=== PATIENT | male | born 1965 | race Caucasian/White ===

== ENCOUNTER 2021-04-28 22:15 | Emergency (ER) | payer BC, MEDICAID ==
[~2021-04-28] VITALS: Ht 175.3 cm; Wt 81.2 kg
[~2021-04-28 22:15] MED LIST: CITA10TA17 PO; ESCI5TAB PO; SIMV-46 PO; VENL75TA54 PO
--- NOTE | 2021-04-28 22:20 | NUR ---
BIBS FOR C/O R HAND LACERATION WITH BROKEN GLASS TABLE TDAP NOT UPDATED
[2021-04-28] MEDS ORDERED: LIDOCAINE 2%-EPI 1:100,000 30 ML VIAL TP ONE (22:30)
[2021-04-28] MEDS ORDERED: TDAP [DIPH/PERTUSSIS/TET] 0.5 ML VIAL IM ONE ×2 (22:30→22:39)
[2021-04-28] MEDS ORDERED: LIDOCAINE 2%-EPI 1:100,000 30 ML VIAL ONE (22:39)
--- NOTE | 2021-04-28 22:46 | NUR ---
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
--- NOTE | 2021-04-28 23:05 | NUR ---
DR JOLEEN BERRY AT PT'S BEDSIDE DOING WOUND CARE TO RIGHT HAND
--- NOTE | 2021-04-28 23:27 | NUR ---
WOUND CARE APPLIED.
--- NOTE | 2021-04-28 23:35 | NUR ---
Patient discharged to home in stable condition. Written and verbal after care instructions given. Patient verbalizes understanding of instruction.
[2021-04-29 01:16] VITALS: BP 136/88
== END 2021-04-28 23:35 | disposition home or self-care (01) ==
LOC: ER 22:19
DX: S61.411A Laceration without foreign body of right hand, initial encounter (principal); I25.2 Old myocardial infarction; F32.A Depression, unspecified; F41.9 Anxiety disorder, unspecified; I25.10 Atherosclerotic heart disease of native coronary artery without angina pectoris; Z60.2 Problems related to living alone; Z79.899 Other long term (current) drug therapy; W25.XXXA Contact with sharp glass, initial encounter; Y93.89 Activity, other specified; Y92.89 Other specified places as the place of occurrence of the external cause; Y99.8 Other external cause status
CPT/HCPCS: 12002; 73130; 90471; 90715; 99283; J3490